=== PATIENT | female | born 1980 | race Caucasian/White ===

== ENCOUNTER 2019-12-05 13:46 | Emergency (ER) | payer MEDICAID, SELFPAY ==
[2019-12-05 13:51] VITALS: BP 128/83; PULSE 78; RESP 18; TEMP 36.8; O2SAT 100; BMI 19.8
--- NOTE | 2019-12-05 13:57 | [facility].EDGENADL ---
ED Disposition Clinical Impression: Musculoskeletal back pain Disposition: Home, Self-Care Condition on Discharge: Good Additional Instructions: You were seen on an emergency basis. It is very important that you follow up with your primary care provider and/or specialist as we discussed within 2 days. All labs and imaging were obtained and interpreted here to rule out life threatening emergencies, but your final results should be reviewed by your primary doctor at your follow up appointment. Please return to the emergency department if any of your symptoms worsen, or if they do not improve as we discussed. Prescriptions: Naproxen Sodium [Anaprox Ds] 550 mg PO BID PRN #20 tab PRN Reason: pain Prescription Printed - Critical Care Critical Care Time: No Attestation: On , the high probability of a clinically significant, sudden or life threatening deterioration of the following system(s) required my full and direct attention, intervention and personal management. The time I documented below is in addition to time spent performing reported procedures but includes the following listed in this critical care notation. Medical Decision Making - Medical Records Medical records reviewed: Yes: I reviewed the patient's medical records. - Trey Inquiry Pt receiving controlled substance: No Vital Signs: 12/05/19 13:51 Temperature 98.2 F Temperature Source Oral Pulse Rate [Left Radial] 78 Respiratory Rate 18 Blood Pressure [Right Arm] 128/83 Blood Pressure Mean [Right Arm] 98 Blood Pressure Source [Right Arm] Automatic Cuff Blood Pressure Position [Right Arm] Sitting 02 Sat by Pulse Oximetry 100 Oxygen Delivery Method Room Air Orders (Tests/Meds): ED MEDICATIONS Discontinued Medications Generic Name Dose Route Start Last Admin Trade Name Freq PRN Reason Stop Dose Admin Ibuprofen 600 mg 12/05/19 14:03 12/05/19 14:04 Motrin 600mg Tablet PO 12/05/19 14:04 600 mg ONCE ONE Administration Medical Decision Narrative: 39-year-old female presenting with back pain. No dysuria or flank pain. No red flags for cauda equina. Neuro intact, nonfocal, atraumatic. This is musculoskeletal pain. She was given 600 mg of oral Motrin for this and will get a prescription for Anaprox. No further work-up indicated. General Adult HPI - General Stated complaint: back ao shoeing horse it jerked Time Seen by Provider: 12/05/19 13:58 - History of Present Illness HPI narrative: This is a 39-year-old female who presents with a 5-day history of diffuse back pain that is been worsening. She initially sustained an injury when she twisted wrong while grooming a horse. She does not want to take any [id number] pain medication at home. She has been on bedrest. She remains able to ambulate at baseline. No numbness, tingling, bowel or bladder changes, weakness - Related Data Previous Rx's Medication Instructions Recorded Naproxen Sodium [Anaprox Ds] 550 mg PO BID PRN #20 tab 12/05/19 Allergies Allergy/AdvReac Type Severity Reaction Status Date / Time No Known Allergies Allergy Verified 12/05/19 14:03 [facility] History - Hepatitis A Screen Attestation statement:: This patient has been screened for Hepatitis A risk factors. I have reviewed the patient's past medical history: Yes ROS Obtained: Yes All systems reviewed & no additional complaints Physical Exam General: well developed, well hydrated, no acute distress Head: Normocephalic, atraumatic EENT: airway patent, mucous membranes moist. extraocular muscles intact. external ears are within normal limits Neck: supple. trachea is midline Heart: rate is normal, rhythm is normal. No murmurs appreciated Lungs: clear to auscultation bilaterally with normal effort and good air movement. Symmetrical chest rise Abdomen/GI: soft, non-tender, non-distended. No CVA tenderness Extremities: global full range of motion. atraumatic. well-perfu
[2019-12-05 14:25] VITALS: BP 128/83; PULSE 78; RESP 18; TEMP 36.8; O2SAT 100
== END 2019-12-05 14:27 | disposition home or self-care (01) ==
LOC: ER 14:13
PROVIDERS: Emergency Provider Physician Assistant
DX: M54.9 Dorsalgia, unspecified (principal); X50.1XXA Overexertion from prolonged static or awkward postures, initial encounter; Y92.89 Other specified places as the place of occurrence of the external cause
CPT/HCPCS: 99281